=== PATIENT | male | born 1950 | race African-American/Black ===

== ENCOUNTER 2024-11-25 10:05 | Emergency (ER) | payer MEDICARE, OTHER ==
[~2024-11-25] VITALS: Ht 170.2 cm; Wt 72.7 kg
[2024-11-25 10:18] VITALS: TEMP 97.9
[2024-11-25 11:37] LABS: BASOPHILS % (AUTO) 0.4 % (0.0-2.0); EOSINOPHILS % (AUTO) 1.1 % (1.0-6.0); HEMATOCRIT 44.1 % (41-53); HEMOGLOBIN 14.7 g/dL (13.5-17.5); LYMPHOCYTES # (AUTO) 1.3 K/uL (1.0-4.8); MEAN CORPUSCULAR HEMOGLOBIN 27.5 pg (26.0-34.0); MEAN CORPUSCULAR HGB CONC 33.3 G/dL (31.0-37.0); MEAN CORPUSCULAR VOLUME 83 fL (80-100); MONOCYTES # (AUTO) 0.8 K/uL (0.1-1.0); MONOCYTES % (AUTO) 14.2 % (2.0-9.0); NEUTROPHILS # (AUTO) 3.8 K/uL (1.8-7.7); NEUTROPHILS % (AUTO) 63.3 % (40.0-70.0); PLATELET COUNT (AUTO) 301 K/uL (150-450); RED BLOOD CELL COUNT(AUTO) 5.34 MIL/uL (4.50-5.90); RED CELL DISTRIBUTION WIDTH 14.6 % (11.5-14.5)
[2024-11-25 11:45] LABS: ANION GAP 6 mmol/L (8-16); CALCIUM, TOTAL 9.1 mg/dL (8.8-10.5); CARBON DIOXIDE 30 mmol/L (22-29); CHLORIDE 98 mmol/L (98-107); CREATININE 1.24 mg/dL (0.60-1.30); GLOMERULAR FILTR. RATE CALC > 60 mL/min (>60); GLUCOSE,RANDOM 111 mg/dL (70-110); POTASSIUM 3.8 mmol/L (3.5-5.1); SODIUM SERUM 134 mmol/L (136-145); UREA NITROGEN, BLOOD 23 mg/dL (7-18)
[2024-11-25 11:53] LABS: TROPONIN I-HIGH SENSITIVITY 7 ng/L (<76)
[2024-11-25 12:00] LABS: THYROID STIMULATING HORMONE 1.61 uIU/mL (0.36-3.74)
[2024-11-25 13:50] LABS: APPEARANCE,URINE CLEAR (CLEAR); BILIRUBIN,URINE NEGATIVE (NEGATIVE); COLOR,URINE YELLOW (YELLOW); GLUCOSE, URINE (UA) NEGATIVE (NEGATIVE); KETONES,URINE NEGATIVE (NEGATIVE); LEUKOCYTE ESTERASE ,URINE NEGATIVE (NEGATIVE); NITRATE,URINE NEGATIVE (NEGATIVE); OCCULT BLOOD,URINE NEGATIVE (NEGATIVE); PH,URINE 5.5 (5.0-8.0); PH,URINE DRUG SCREEN 5.5 (5.0-8.0); PROTEIN,URINE 30-70 mg/dL (NEGATIVE); SPECIFIC GRAVITIY, URINE 1.031 (1.003-1.030)
[2024-11-25 14:06] LABS: ALCOHOL, URINE DRUG SCREEN NEGATIVE (NEGATIVE); AMPHET/METH SCREEN,URINE NEGATIVE (NEGATIVE); BARBITURATE SCREEN, URINE NEGATIVE (NEGATIVE); BENZODIAZEPINES SCREEN,URINE NEGATIVE (NEGATIVE); CANNABINOID SCREEN,URINE NEGATIVE (NEGATIVE); COCAINE SCREEN,URINE NEGATIVE (NEGATIVE); METHADONE SCREEN, URINE NEGATIVE (NEGATIVE); OPIATE SCREEN,URINE NEGATIVE (NEGATIVE); PHENCYCLIDINE SCREEN,URINE NEGATIVE (NEGATIVE)
[2024-11-25 14:10] VITALS: BP 141/84; PULSE 91; RESP 18; O2SAT 96
== END 2024-11-25 14:16 | disposition home or self-care (01) ==
LOC: EMS 10:07
DX: R46.89 Other symptoms and signs involving appearance and behavior (principal)
CPT/HCPCS: 70450; 71045; 80048; 80307; 81003; 84443; 84484; 85025; 93005; 99285; 36415-L1; 36415-TC

== ENCOUNTER 2025-07-26 09:06 | Inpatient (IN) | payer OTHER ==
[~2025-07-26] VITALS: Ht 170.2 cm; Wt 79.5 kg
[2025-07-26 10:14] LABS: CALCIUM, TOTAL 8.7 mg/dL (8.8-10.5); CREATININE 0.81 mg/dL (0.60-1.30); GLOMERULAR FILTR. RATE CALC > 60 mL/min (>60); GLUCOSE,RANDOM 98 mg/dL (70-110); SODIUM SERUM 134 mmol/L (136-145); UREA NITROGEN, BLOOD 15 mg/dL (7-18)
[2025-07-26 10:15] LABS: PLATELET COUNT (AUTO) 296 K/uL (150-450); RED BLOOD CELL COUNT(AUTO) 5.20 MIL/uL (4.50-5.90); RED CELL DISTRIBUTION WIDTH 17.8 % (11.5-14.5); WHITE BLOOD COUNT (AUTO) 9.6 K/uL (4.5-11.0)
[2025-07-26 10:24] LABS: TROPONIN I-HIGH SENSITIVITY 9 ng/L (<76)
[2025-07-26 10:32] LABS: LACTIC ACID 2.1 mmol/L (0.4-2.0)
[2025-07-26] MEDS: SODIUM CHLORIDE 0.9% 2,400 ML IV ONE (10:50)
[2025-07-26] MEDS ORDERED: ONDANSETRON HCL 4 MG/2 ML VIAL IVP PRN (11:15)
[2025-07-26] MEDS: CefTRIAXone 1 GM/DEXTROSE 50 ML IV ONE (12:05)
[2025-07-26] MEDS: SODIUM CHLORIDE 0.9% 1,000 ML IV ONE (13:37)
[2025-07-26 14:42] LABS: APPEARANCE,URINE CLEAR (CLEAR); GLUCOSE, URINE (UA) TRACE mg/dL (NEGATIVE); LEUKOCYTE ESTERASE ,URINE NEGATIVE (NEGATIVE); NITRATE,URINE NEGATIVE (NEGATIVE); OCCULT BLOOD,URINE SMALL (NEGATIVE); PH,URINE DRUG SCREEN 7.0 (5.0-8.0); SPECIFIC GRAVITIY, URINE 1.005 (1.003-1.030)
[2025-07-26 14:48] LABS: ALCOHOL, URINE DRUG SCREEN NEGATIVE (NEGATIVE); AMPHET/METH SCREEN,URINE NEGATIVE (NEGATIVE); BARBITURATE SCREEN, URINE NEGATIVE (NEGATIVE); CANNABINOID SCREEN,URINE NEGATIVE (NEGATIVE); COCAINE SCREEN,URINE NEGATIVE (NEGATIVE); METHADONE SCREEN, URINE NEGATIVE (NEGATIVE)
[2025-07-26 14:49] LABS: SQUAMOUS EPITHELIAL CELL,UR Few /LPF (None Seen)
[2025-07-26 15:00] VITALS: BP 154/77; PULSE 83; RESP 19; TEMP 97.7; O2SAT 99
[2025-07-26 15:01] VITALS: BP 154/77; PULSE 83; RESP 20; TEMP 97.7; O2SAT 99
[2025-07-26] MEDS: HEPARIN SODIUM,PORCINE 5,000 UNITS/ML VIAL SQ SCH (16:08)
[2025-07-26] MEDS: DOCUSATE SODIUM 100 MG CAPSULE PO SCH (20:59)
[2025-07-27 04:08] VITALS: BP 153/83; PULSE 89; RESP 20; TEMP 98.2; O2SAT 99
[2025-07-27] MEDS: FAMOTIDINE 20 MG TABLET PO SCH (08:20)
[2025-07-27 08:32] VITALS: BP 137/90; PULSE 81; RESP 18; TEMP 97.9; O2SAT 97
[2025-07-27 20:10] VITALS: BP 144/78; PULSE 81; RESP 18; TEMP 97.9; O2SAT 97
[2025-07-27] MEDS: PERMETHRIN 5% 60 GM CREAM TP ONE (20:55)
[2025-07-27] MEDS: ACETAMINOPHEN 325 MG TABLET PO PRN (20:55)
[2025-07-28 08:31] VITALS: BP 137/74; PULSE 72; RESP 18; TEMP 97.7; O2SAT 99
[2025-07-28 20:11] VITALS: BP 140/72; PULSE 61; RESP 18; TEMP 98.2; O2SAT 97
[2025-07-29 04:00] VITALS: BP 147/87; PULSE 86; RESP 18; TEMP 97.9; O2SAT 99
[2025-07-29 09:28] VITALS: BP 158/89; PULSE 81; RESP 18; TEMP 98; O2SAT 99
[2025-07-29 16:33] VITALS: BP 147/89; PULSE 90; RESP 18; TEMP 97.8; O2SAT 98
[2025-07-29 19:45] VITALS: BP 146/78; PULSE 94; RESP 18; TEMP 98.1; O2SAT 96
[2025-07-29] MEDS: AMMONIUM LACTATE 12% 225 GM LOTION TP SCH (20:40)
[2025-07-30 05:46] VITALS: BP 130/108; PULSE 86; RESP 20; TEMP 97.9; O2SAT 98
[2025-07-30 08:00] VITALS: BP 143/95; PULSE 80; RESP 20; TEMP 97.7; O2SAT 99
[2025-07-30] MEDS ORDERED: AMMO225L14 TP (12:15)
== END 2025-07-30 14:00 | DRG 71 ==
LOC: EMS 09:06 → EDH 11:08 → 6S 14:52 → 4E 07-29 17:50
PROVIDERS: ADMIT Internal Medicine; ATTEND Internal Medicine
DX: G93.40 Encephalopathy, unspecified (principal); Z59.00 Homelessness unspecified; R53.81 Other malaise; B86 Scabies; F03.90 Unspecified dementia, unspecified severity, without behavioral disturbance, psychotic disturbance, mood disturbance, and anxiety; E86.0 Dehydration; L85.0 Acquired ichthyosis
CPT/HCPCS: 71045; 80048; 80307; 81001; 82140; 83605; 84484; 85025; 87040; 93005; 96361; 96365; 97110; 97162; 97167; 97530; 97535; 99285; G0378; G0480; J0696; J1644; 36415-L1; 36415-TC